=== PATIENT | female | born 1955 | race Caucasian/White ===

== ENCOUNTER 2024-12-03 07:56 | Emergency (ER) | payer MEDICARE, OTHER, SELFPAY ==
[2024-12-03 08:00] VITALS: BP 182/96
--- NOTE | 2024-12-03 08:56 | ED.GENMED ---
History of Present Illness
General
Chief Complaint: Skin Problem
Source: patient
Exam Limitations: none
Time Seen by Provider: 12/03/24 08:24
History of Present Illness
History of Present Illness:
69yoF with a history of coronary artery disease with stents, hypertension, hyperlipidemia, lymphedema presenting for evaluation of left lower leg pain. Patient bumped her leg last week but did not think much of it. She started to experience
discomfort in the left lower leg 2 days ago. She has chronic pain due to left ankle osteoarthritis this pain is in a different location. She noticed some redness and became worried that she was developing cellulitis. She is otherwise asymptomatic
and denies any fevers, chills, body aches.
Phy Exam
General Physical Exam
General Presentation: well appearing and no apparent distress
General Skin: warm and dry
General Habitus: normal
General Mental: alert
ENT Exam
ENT Exam: normocephalic
Pulmonary Exam
Pulmonary Exam: no respiratory distress
Neurological Exam
Neurological Exam: alert
[place] Coma Scale
Eye Opening: Spontaneous
Verbal Response: Oriented
Motor Response: Obeys Commands
GCS Total Score: 15
Musculoskeletal Exam
Musculoskeletal Exam: other (L lower leg: Small scab noted to lateral lower leg with faint surrounding erythema. No fluctuance or crepitus. Lymphedema present bilaterally. 2+ DP pulse.)
Skin Exam
Skin Exam: normal color and warm/dry
Psychiatric Exam
Psychiatric Exam: normal mood/affect
Course
Orders/Labs/Results
Orders:
Orders
12/03/24 08:55
Venous Doppler Lwr Ext Left [US Periph Venous LOWER Ext LT] Urgent
Comment:
Reason For Exam: L calf pain, redness
Vital Signs
Initial and Last Documented VS:
Initial Vital Signs
Temp Pulse Resp BP Pulse Ox
97.7 F 56 18 182/96 98
12/03/24 08:00 12/03/24 08:00 12/03/24 08:00 12/03/24 08:00 12/03/24 08:00
Last Documented Vital Signs
Temp Pulse Resp BP Pulse Ox
97.7 F 52 16 158/69 99
12/03/24 08:00 12/03/24 10:15 12/03/24 10:26 12/03/24 10:13 12/03/24 10:15
MDM/Problems Addressed
Differential Diagnosis Includes:
69yoF here with L lower leg pain. Bumped into something a few days ago and now has redness. No f/c. She is hypertensive with otherwise normal vital signs. Lymphedema noted on exam which is baseline. There is a small scab with faint surrounding
erythema. Differential diagnosis includes: cellulitis, chronic venous stasis, DVT
Venous duplex obtained which is negative for DVT. She was started on a course of Keflex to cover for cellulitis. Advised f/u with PCP and ED return precautions reviewed. Patient in agreement with plan and was discharged in stable condition.
*Pulse Oximetry
SaO2: 98
Oxygen Mode of Delivery: Room air
Patient hypoxic: no
*Critical Care Note
Total Time (30-74mins, 75-104mins- exclusive of procedures): Not Applicable
ED Attending Note
-
Portions of this chart may have been created with voice recognition software.� Occasional wrong word or��sound alike� substitutions may have occurred due to the inherent limitations of voice recognition software.
Discharge Plan
Departure
Patient Disposition: Home (Routine Discharge)
Date of Disposition: 12/03/24
Time of Disposition: 10:28
Patient with high blood pressure during this ER visit?: Yes
Discharge Problem:
Cellulitis of left lower extremity
Instructions: Cellulitis (Skin Infection), Adult (DC)
Prescriptions:
New
cephalexin 500 mg capsule
500 mg PO QID Qty: 28 0RF
Referrals:
Joyce Gregory MD [Family Provider]
Activity Restrictions/Additional Instructions:
Take antibiotics as prescribed. Elevate your legs to help with swelling.
Please follow-up with your family doctor next week. Return to the ER with any worsening symptoms including fevers or spreading redness.
Interventions
Interventions:
*Risk Screen - Suicide Last Done: 12/03/24 08:00
*General Assessment Last Done: 12/03/24 08:00
*Neglect/Abuse Screening Last Done: 12/03/24 08:00
*ED- Fall Risk Assessment Last Done: 12/03/24 08:25
*ED COVID-19 Vaccine History Last Done: 12/03/24 08:25
*ED Influenza Vaccine History Last Done: 12/03/24 08:25
*Nursing Disposition Last Done: 12/03/24 10:47
ED-Skin Assessment Last Done: 12/03/24 10:47
Discharge Date and Time
Discharge Date/Time: 12/03/24 10:49
Print Language: [place]
[2024-12-03 10:13] VITALS: BP 158/69
== END 2024-12-03 10:49 | disposition home or self-care (01) ==
LOC: EMR 07:56
PROVIDERS: EMERGENCY PHYSICIAN Emergency Medicine; FAMILY PHYSICIAN Internal Medicine
DX: L03.116 Cellulitis of left lower limb (principal); I25.10 Atherosclerotic heart disease of native coronary artery without angina pectoris; I10 Essential (primary) hypertension; E78.5 Hyperlipidemia, unspecified; I89.0 Lymphedema, not elsewhere classified; M19.072 Primary osteoarthritis, left ankle and foot; Z95.5 Presence of coronary angioplasty implant and graft
CPT/HCPCS: 99284; 93971